=== PATIENT | male | born 1990 | race African-American/Black ===

== ENCOUNTER 2017-05-13 19:53 | Emergency (ER) | payer OTHER ==
[~2017-05-13] VITALS: Ht 175.3 cm; Wt 143.1 kg
[2017-05-13 20:01] VITALS: BP 146/80; PULSE 80; RESP 18; TEMP 98.1; O2SAT 98
[2017-05-13 20:05] VITALS: BP 146/80; PULSE 80; RESP 15; TEMP 98.1; O2SAT 98
[2017-05-13] MEDS ORDERED: AMOXICILLIN/CLAVULANATE K 875 MG TAB PO ONE (20:15)
[2017-05-13] MEDS ORDERED: IBUPROFEN 600 MG TAB PO ONE (20:15)
[2017-05-13] MEDS ORDERED: MEDR4PAK PO (20:21)
[2017-05-13] MEDS ORDERED: AUGM875T3 PO (20:21)
[2017-05-13] MEDS ORDERED: IBUP-232 PO (20:21)
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
== END 2017-05-13 20:38 | disposition home or self-care (01) ==
LOC: PHED 19:53
DX: J01.10 Acute frontal sinusitis, unspecified (principal)
CPT/HCPCS: 99284

== ENCOUNTER 2017-05-23 17:54 | Emergency (ER) | payer OTHER ==
[~2017-05-23] VITALS: Ht 175.3 cm; Wt 143.7 kg
[~2017-05-23 17:54] MED LIST: AUGM875T3 PO; IBUP-232 PO; MEDR4PAK PO
[2017-05-23 18:09] VITALS: BP 158/77; PULSE 92; RESP 16; TEMP 97; O2SAT 98
[2017-05-23] MEDS ORDERED: PSEU30TA82 (19:15)
[2017-05-23] MEDS ORDERED: ONDANSETRON ODT 4 MG TAB PO ONE (20:00)
--- NOTE | 2017-05-23 21:15 | RADRPT ---
EXAM DATE/TIME: 05/23/2017 20:28 [facility] COMPARISON: No previous studies available for comparison. INDICATIONS : Cephalgia. RADIATION DOSE: 57.81 CTDIvol (mGy) MEDICAL HISTORY : None SURGICAL HISTORY : None. ENCOUNTER: Initial ACUITY: 1 week PAIN SCALE: 6/10 LOCATION: Bilateral cranial TECHNIQUE: Multiple contiguous axial images were obtained of the head. Using automated exposure control and adj ustment of the mA and/or kV according to patient size, radiation dose was kept as low as reasonably a chievable to obtain optimal diagnostic quality images. DICOM format image data is available electro nically for review and comparison. FINDINGS: CEREBRUM: The ventricles are normal for age. No evidence of midline shift, mass lesion, hemorrhage or acute in farction. No extra-axial fluid collections are seen. POSTERIOR FOSSA: The cerebellum and brainstem are intact. The 4th ventricle is midline. The cerebellopontine angle i s unremarkable. EXTRACRANIAL: The visualized portion of the orbits is intact. SKULL: The calvaria is intact. No evidence of skull fracture. CONCLUSION: No acute intracranial abnormality is identified. Rikki Ferreira MD on May 23, 2017 at 21:11 Board Certified Radiologist. This report was verified electronically.
[2017-05-23 21:39] VITALS: BP 139/83; PULSE 85; RESP 16; O2SAT 100
[2017-05-23] MEDS ORDERED: KETOROLAC TROMETHAMINE 60 MG/2 ML (IM) VIAL IM ONE (21:45)
--- NOTE | 2017-05-23 22:20 | PD ---
HPI Chief Complaint: Headache Time Seen by Provider: 20:01 Travel History International Travel<30 days: No Contact w/Intl Traveler<30days: No Traveled to known affect area: No History of Present Illness HPI 26-year-old male presents to the emergency department for complaint of intermittent headache at work and from work over the past 2 weeks. Patient is completed a course of oral antibiotic for sinusitis with only minimal relief. Patient states headache is not sudden onset thunderclap or worst ever but recurrent. Patient does not know specifically photophobia and denies any visual disturbance such as double vision or loss of vision. Patient does not report any neck pain or stiffness and has had no recent febrile illness. Patient denies any injury or fall. Patient has had no change in mentation upper or lower extremity numbness tingling or weakness or balance disturbance. 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 Patient is unable to identify exacerbating factors. Patient states it is not continuous or intractable headache is not out of bed with a headache and awakened with headache. Patient does get headache relief with ibuprofen. Patient has had no associated vomiting. Patient does have family history of migraines. Patient denies personal history of hypertension dyslipidemia diabetes heart disease asthma or other immune disorder. Patient is unable to identify exacerbating factors although seems to have temporary relief with ibuprofen. Patient still notes anterior facial pressure over the frontal and maxillary sinuses. PFSH Past Medical History Narrative Medical Negative past medical history negative surgical history no tobacco use no alcohol use no substance use; family history migraines; nursing notes reviewed Medical History: Denies Significant Hx ?: Not Past Surgical History Surgical History: No Previous Surgery Social History Alcohol Use: No Tobacco Use: No Substance Use: No Allergies-Medications (Allergen,Severity, Reaction): Coded Allergies: No Known Drug Allergies (Verified Allergy, Unknown, 05/13/17) Reported Meds & Prescriptions Reported Meds & Active Scripts Active Ibuprofen 600 Mg Tab 600 Mg PO Q6H PRN Augmentin (Amoxicillin-Clavulanate) 875-125 Mg Tab 1 Tab PO BID 10 Days Reported Sudafed (Pseudoephedrine HCl) 30 Mg Tablet Review of Systems Except as stated in HPI: all other systems reviewed are Neg General / Constitutional: No: Fever, Chills Eyes: No: Diploplia, Blurred Vision, Photophobia HENT: Positive: Headaches, No: Lightheadedness, Sore Throat, Neck Stiffness, Neck Pain, Earache Cardiovascular: No: Chest Pain or Discomfort Respiratory: No: Shortness of Breath Gastrointestinal: No: Nausea, Vomiting, Abdominal Pain Genitourinary: No: Dysuria, Decreased Urinary Output Musculoskeletal: No: Myalgias, Arthralgias Skin: No Rash Neurologic: Positive: Headache, No: Weakness, Dizziness, Syncope, Focal Abnormalities, Coordination Problem, Change in Mentation, Slurred Speech, Paresthesia, Seizures Psychiatric: No: Anxiety Hematologic/Lymphatic: No: Lymph Node Enlargement Physical Exam Narrative GENERAL: Well-developed well-nourished male in no acute distress no respiratory distress GCS 15 SKIN: Warm and dry. HEAD: Atraumatic. Normocephalic. EYES: Pupils equal and round. No scleral icterus. No injection or drainage. Funduscopic exam no papilledema. ENT: No nasal bleeding or discharge. Mucous membranes pink and moist. Mild tenderness to percussion over the frontal and maxillary sinuses. NECK: Trachea midline. No JVD. Supple no nuchal rigidity no meningismus. CARDIOVASCULAR: Regular rate and rhythm. RESPIRATORY: No accessory muscle use. Clear to auscultation. Breath sounds equal bilaterally. GASTROINTESTINAL: Abdomen soft, non-tender, nondistended. Hepatic and splenic margins not palpable. MUSCULOSKELETAL: Extremities without clubbing, cyanosis, or edema. No obvious deformities. NEUROLOGICAL: Awake and alert. No obvious cranial nerve deficits. Motor grossly within normal limits. Five out of 5 muscle strength in the arms and legs. No limb ataxia. No pronator drift. Sensory exam intact. Normal speech. PSYCHIATRIC: Appropriate mood and affect; insight and judgment normal. Data Data Last Documented VS Vital Signs Date Time Temp Pulse Resp B/P (MAP) Pulse Ox O2 Delivery O2 Flow Rate FiO2 05/23/17 21:39 85 16 139/83 (101) 100 Room Air 05/23/17 18:[address] Brain W/O Iv Contrast(Rout) (05/23/17 ) Ondansetron Odt (Zofran Odt) (05/23/17 20:00) Ketorolac Inj (Toradol Inj) (05/23/17 21:45) MDM Medical Decision Making Medical Screen Exam Complete: Yes Emergency Medical Condition: Yes Medical Record Reviewed: Yes Interpretation(s) Last Impressions Head CT 05/23/17 0000 Signed Impressions: Service Date/Time: Tuesday, May 23, 2017 20:28 - CONCLUSION: No acute intracranial abnormality is identified. Rikki Ferreira MD Vital Signs Date Time Temp Pulse Resp B/P (MAP) Pulse Ox O2 Delivery O2 Flow Rate FiO2 05/23/17 21:39 85 16 139/83 (101) 100 Room Air 05/23/17 19:12 16 97 Room Air 05/23/17 18:09 97.0 92 16 158/77 (104) 98 Differential Diagnosis Cephalgia, tension migraine versus vascular versus autoimmune illnesses, rhinosinusitis, eyestrain Narrative Course Patient given sublingual Zofran and CT brain noncontrast ordered Patient's symptoms improved after Zofran and given one-time dose of Toradol 60 mg IM Patient stable for outpatient management for tension-type headache with recent history of rhinosinusitis. Patient encouraged to use as needed Afrin nasal decongestant spray intermittently for 3 days as well as May use over-the- counter Flomax per package directions. Diagnosis Primary Impression: Cephalgia Additional Impression: Rhinosinusitis Referrals: Primary Care Physician call for appointment Patient Instructions: General Instructions Additional Instructions: May use [id number] Afrin nasal decongestant spray 1 spray per and nares twice daily for up to 3 days avoid prolong use to avoid rebound congestion May use [id number] Flonase nasal spray per package directions Complete course of oral antibiotic Return to the emergency department for any concerns or change in condition Med/Other Pt SpecificInfo: No Change to Meds Disposition: 01 DISCHARGE HOME Condition: Stable Livia Stapleton MD May 23, 2017 22:20
[2017-05-23 23:12] VITALS: BP 136/72; PULSE 85; RESP 16; O2SAT 100
== END 2017-05-23 23:15 | disposition home or self-care (01) ==
LOC: PHED 17:54
DX: G44.209 Tension-type headache, unspecified, not intractable (principal); J32.9 Chronic sinusitis, unspecified
CPT/HCPCS: 70450; 96372; 99284; J1885